=== PATIENT | male | born 1970 | race African-American/Black ===

== ENCOUNTER 2020-05-11 13:26 | Emergency (ER) | payer OTHER, SELFPAY ==
[2020-05-11 13:24] VITALS: BP 109/73; PULSE 68; RESP 17; TEMP 36.4; O2SAT 97
[2020-05-11 14:03] VITALS: BP 142/89; O2SAT 100
[2020-05-11 14:07] VITALS: O2SAT 100
[2020-05-11 14:07] LABS: Ethanol 125 mg/dL (<10)
--- NOTE | 2020-05-11 14:12 | PC.NURSE ---
Pt to ED via EMS after being found sleeping in a reyna. Pt admits to ETOH today. Pt also reported that he may have taken or smoked other drugs. Pt is very drowsy and not making much sense when speaking to him. Pt alert to verbal. Appears intoxicated. Unable to obtain hx from pt.
[2020-05-11 14:15] VITALS: O2SAT 100
[2020-05-11 14:16] VITALS: BP 137/83; O2SAT 100
--- NOTE | 2020-05-11 14:33 | PC.NURSE ---
Pt walking around room wanting to leave.
--- NOTE | 2020-05-11 14:38 | ED.GENADULT ---
HPI - General Adult General Chief complaint: Alcohol Stated complaint: intoxication Source: patient and EMS Mode of arrival: EMS Limitations: no limitations History of Present Illness HPI narrative: Patient had some alcohol, was laying down in the bushes the police got a phone call by bystanders and brought patient to the emergency room. Patient denying any injury, denying any symptoms and he would like to go home. Related Data Home Medications Medication Instructions Recorded Confirmed No Home Medications 05/11/20 05/11/20 Allergies Allergy/AdvReac Type Severity Reaction Status Date / Time No Known Allergies Allergy Verified 05/11/20 13:30 Review of Systems Review of Systems: Narrative: CONSTITUTIONAL: Denies fever, chills, or sweats. EYES: Denies visual changes, redness, or discharge. ENT: Denies rhinorrhea, congestion, sore throat, or otalgia. CARDIOVASCULAR: Denies chest pain, palpitations, or edema. RESPIRATORY: Denies cough or dyspnea. GASTROINTESTINAL: Denies abdominal pain, nausea, vomiting, or diarrhea. GENITOURINARY: Denies dysuria or hematuria. SKIN: Denies rash or itching. MUSCULOSKELETAL: Denies back pain, joint pain, or myalgia. NEUROLOGIC: Denies headache, numbness, or weakness. PSYCHIATRIC: Denies anxiety or depression. PMFSH Past Medical History Medical History Alcohol abuse Social History Social History (Updated 05/11/20 @ 14:40 by Keaton Torres MD) Social History: Patient declined to answer any question about drug or smoking. Second hand tobacco smoke exposure: No Exam Narrative: Exam Narrative: General appearance: Well-developed, well-nourished Skin: Normal color Head: Normocephalic, nontraumatic Eyes: Clear conjunctiva ENT: Oropharynx normal, ears normal, nose normal Neck: Supple, nontender Chest and respiratory: Airway patent, no respiratory distress, no accessory muscle use Heart: Regular rate/rhythm Abdomen: Soft, nontender, no organomegaly, quiet bowel sounds Vascular: Normal peripheral pulses, normal capillary refill. Musculoskeletal: Normal range of motion, nontender back Neurologic: Alert and oriented ?3, [employer] is normal as tested, no gross motor deficit. Patient was able to get out of bed and walk in the emergency room, steady without any hesitation. Course Course Emergency Course: Improving Vital Signs Vital signs: Vital Signs Temperature 36.4 C 05/11/20 13:24 Pulse Rate 68 05/11/20 13:24 Respiratory Rate 17 05/11/20 13:24 Blood Pressure 109/73 05/11/20 13:24 Pulse Oximetry 97 05/11/20 13:24 Temperature 36.4 C 05/11/20 13:24 Pulse Rate 68 05/11/20 13:24 Respiratory Rate 17 05/11/20 13:24 Blood Pressure 137/83 05/11/20 14:16 Pulse Oximetry 100 05/11/20 14:16 Medical Decision Making MDM Narrative Medical decision making narrative: Patient is drunk. And alcohol level is 125. Patient is awake, alert oriented x4 and my plan to let him go. Vital Signs Vital Signs: Vital Signs Temperature 36.4 C 05/11/20 13:24 Pulse Rate 68 05/11/20 13:24 Respiratory Rate 17 05/11/20 13:24 Blood Pressure 109/73 05/11/20 13:24 Pulse Oximetry 97 05/11/20 13:24 Temperature 36.4 C 05/11/20 13:24 Pulse Rate 68 05/11/20 13:24 Respiratory Rate 17 05/11/20 13:24 Blood Pressure 137/83 05/11/20 14:16 Pulse Oximetry 100 05/11/20 14:16 Lab Data Labs: Lab Results 05/11/20 Range/Units 13:47 Ethyl Alcohol 125 (<10) mg/dL Critical Care Time Critical Care Time Critical Care Time: No Discharge Plan Discharge Clinical Impression: Alcohol use Patient Disposition: Home, Self-Care Condition: Stable
--- NOTE | 2020-05-11 14:44 | PC.NURSE ---
Pt sitting on bed eating snacks that were brought with him. Pt much more alert at this time. Able to ambulate around room without difficulty.
--- NOTE | 2020-05-11 14:47 | PC.NURSE ---
Asked patient if he is able to call a family member or friend from ride. Pt states he is unable to call for ride but asking to take the bus which is the transportation he typically utilizes. Pt much more alert and answering questions.
--- NOTE | 2020-05-11 15:26 | PC.NURSE ---
Pt sitting on end of bed. Awaiting lower alcohol levels or arrival of a ride for discharge.
--- NOTE | 2020-05-11 16:29 | PC.NURSE ---
Pt A&O x4 ambulating around room and into [facility]. Pt ready to be discharged. Pt now appears sober. Will discharge.
[2020-05-11 16:42] VITALS: BP 122/80; PULSE 79; RESP 16; O2SAT 100
== END 2020-05-11 16:44 | disposition home or self-care (01) ==
PROVIDERS: Emergency Provider Emergency Medicine
DX: F10.920 Alcohol use, unspecified with intoxication, uncomplicated (principal); Y90.6 Blood alcohol level of 120-199 mg/100 ml
CPT/HCPCS: 36415; 80307; 99283